=== PATIENT | male | born 1995 | race Caucasian/White ===

== ENCOUNTER 2016-10-27 19:57 | Emergency (ER) | payer MEDICAID ==
[2016-10-27 20:03] VITALS: RESP 16; TEMP 98.2
--- NOTE | 2016-10-27 21:10 | EDPHY ---
H & P Time Seen by Provider: 10/27/16 20:25 HPI/ROS: CHIEF COMPLAINT: Back pain HISTORY OF PRESENT ILLNESS: 20-year-old male presents to the emergency department by private vehicle complaining of chronic back pain. The patient states that he fell off of a ladder 2 years ago and has had chronic pain in his back since that time. He has had worsening pain or especially over the last few weeks. Has radicular symptoms down his left leg as well as numbness and tingling. He is from [facility] and saw his primary care provider recently and had an outpatient MRI which revealed herniated disc at L5-S1. He was referred to an orthopedic surgeon who apparently did not take his insurance. He was told by his primary care provider to come here for evaluation and referral to Neurosurgery. Patient has no bowel or bladder incontinence. He feels that his lower legs are weak. That is not new. He has no chest pain or difficulty breathing. No new reported trauma. He ran out of his oxycodone just a few days ago. He has also taken Valium for muscular spasm. REVIEW OF SYSTEMS: Constitutional: No fever, no chills. Eyes: No double or blurry vision. ENT: No sore throat. Respiratory: No cough, no shortness of breath. Cardiac: No chest pain. Gastrointestinal: No abdominal pain, vomiting or diarrhea. Genitourinary: No dysuria. Musculoskeletal: Back pain as above. No neck pain. Skin: No rashes. Neurological: No headache. Past Medical/Surgical History: Chronic back pain, narcotic dependence Social History: Single and lives in [place] Smoking Status: Never smoked Physical Exam: General Appearance: Alert, no distress. Eyes: Pupils equal and round. Extraocular motions are all intact. ENT: Mouth: Mucous membranes moist. Respiratory: No wheezing, rhonchi, or rales, lungs are clear to auscultation. Cardiovascular: Regular rate and rhythm. Gastrointestinal: Abdomen is soft and nontender, no masses, no rebound or guarding, bowel sounds normal. No CVA tenderness bilaterally. Neurological: Alert and oriented x 3, cranial nerves II through XII grossly intact Skin: Warm and dry, no rashes. Musculoskeletal: Nontender to palpate along the cervical, thoracic or lumbar spine. Neck is supple. Extremities: Full range of motion and no peripheral edema. Straight leg raise is negative bilaterally. He has pain with walking on his toes however he is able to do so fully. He is able to do heel walking. He is unable to bend down to touch his toes because of pain. Laterally bending to the left causes discomfort. Psychiatric: Patient is oriented X 3, there is no agitation. Constitutional: Initial Vital Signs Temperature (C) 36.8 C 10/27/16 20:01 Heart Rate 109 H 10/27/16 20:01 Respiratory Rate 16 10/27/16 20:01 Blood Pressure 137/96 H 10/27/16 20:01 O2 Sat (%) 95 10/27/16 20:01 O2 Delivery Mode Room Air Allergies/Adverse Reactions: No Known Allergies Allergy (Unverified 10/27/16 20:03) Home Medications: Medication Instructions Recorded Cyclobenzaprine [Flexeril] 10 mg PO TIDPRN PRN #12 tab 10/27/16 Medical Decision Making ED Course/Re-evaluation: 20-year-old male presents to the emergency department with chronic back pain. The patient ran out of his oxycodone just a few days ago. Patient had MRI on October 18, 2016 which showed a central disc extrusion at L5-S1 resulting in contact with bilateral S1 nerve root and slight displacement of the descending left S1 nerve root. The patient lives in [place], [place] in [facility] and has been seen at the [facility] in [place]. His most recent visit, October 23, 2016, they explained that they would not prescribe further narcotics for him. He was referred to an orthopedic surgeon, Dr. Rincon, with [facility], the patient states that they do not take his insurance. I explained to the patient that I did not feel comfortable prescribing narcotic pain medication for him. Patient has ongoing chronic pain for last 2 years. Has been prescribed oxycodone typically about every 2 weeks or less by providers updated some [facility]. He most recently filled a prescription on October 18, 2016 for oxycodone and diazepam. The patient understands that we will not prescribe narcotics for him in the emergency department. He understands that he will establish care with primary care provider. I did speak with Dr. Romo who is on-call for Neurosurgery who will see him in follow-up. I do not think additional imaging studies are indicated. The patient had a recent MRI. He is otherwise neurovascularly intact. Differential Diagnosis: Back pain including but not limited to muscular pain, herniated disc, spine fracture, intra-abdominal causes and urinary tract infection. - Data Points Medications Given: Discontinued Medications Cyclobenzaprine HCl (Flexeril) 30 mg PO EDNOW ONE Stop: 10/27/16 21:27 Last Admin: 10/27/16 21:27 Dose: 30 mg Departure - Departure Disposition: Home, Routine, Self-Care Clinical Impression: Back pain Qualifiers: Back pain location: low back pain Chronicity: chronic Back pain laterality: left Sciatica presence: with sciatica Sciatica laterality: sciatica of left side Qualified Code(s): M54.42 - Lumbago with sciatica, left side Condition: Good Instructions: Cyclobenzaprine (By mouth), Low Back Strain (ED), Chronic Back Pain (ED) Additional Instructions: You should follow up with neurosurgeon on-call regarding her ongoing chronic back pain. May take ibuprofen 600 mg every 8 hours as needed for pain. Referrals: Rigoberto Romo MD [Medical Doctor] - 5-7 days, call for appt. (Neurosurgeon on- call) Prescriptions: Cyclobenzaprine [Flexeril] 10 mg PO TIDPRN PRN #12 tab PRN Reason: Spasms
[2016-10-27] MEDS ORDERED: CYCLOBENZAPRINE 10MG PREPACK#3 BTL TAKEHOME ONE (21:17)
[2016-10-27] MEDS ORDERED: CYCLOBENZAPRINE 10 MG TAB ONE (21:23)
[2016-10-27] MEDS ORDERED: CYCLOBENZAPRINE 10 MG TAB PO ONE (21:26)
[2016-10-27 21:35] VITALS: BP 137/89; PULSE 73; O2SAT 94
== END 2016-10-27 21:34 | disposition home or self-care (01) ==
DX: M54.42 Lumbago with sciatica, left side (principal)

== ENCOUNTER 2016-12-06 12:57 | Day surgery (SDC) | payer MEDICAID ==
[2016-12-06] MEDS ORDERED: fentaNYL 100 MCG/2 ML INJ ONE (14:01)
[2016-12-06] MEDS ORDERED: MIDAZOLAM 2 MG/2 ML VIAL ONE (14:01)
[2016-12-06] MEDS ORDERED: LIDOCAINE 1% 300 MG/30 ML SDV ONE (15:02)
[2016-12-06] MEDS ORDERED: TRIAMCINOLONE ACETONIDE 200 MG/5 ML MDV IM ONE (15:03)
[2016-12-06] MEDS ORDERED: fentaNYL 100 MCG/2 ML INJ IVP PRN (15:23)
[2016-12-06] MEDS ORDERED: HYDROCODONE/APAP 5/325 TAB PO PRN (15:24)
== END 2016-12-06 16:07 | disposition home or self-care (01) ==
LOC: FIMAGING 12:57
PROVIDERS: ATTEND Physician Assistant Surgical
PROC: 3E0S33Z Introduction of Anti-inflammatory into Epidural Space, Percutaneous Approach (ICD-10-PCS; principal; 2016-12-06 15:05)
PROC: 3E0S3BZ Introduction of Anesthetic Agent into Epidural Space, Percutaneous Approach (ICD-10-PCS; principal; 2016-12-06 15:05)
DX: M51.37 Other intervertebral disc degeneration, lumbosacral region (principal); M54.5 Low back pain; M54.32 Sciatica, left side
CPT/HCPCS: J2250; J3010; J3301

== ENCOUNTER → 2017-01-02 | Day surgery (SDC) | payer MEDICAID ==
[~2017-01-02] MED LIST: BUPIVACAINE 0.5% 10 ML SDV ONE; DEPO METHYLPREDNISOLONE 40 MG/ML SDV ONE; DEPO METHYLPREDNISOLONE 80 MG/ML SDV ONE
== END | disposition home or self-care (01) ==
LOC: FIMAGING 07:59
PROVIDERS: ATTEND Neurological Surgery
PROC: 3E0U3BZ Introduction of Anesthetic Agent into Joints, Percutaneous Approach (ICD-10-PCS; principal; 2017-01-02)
PROC: 3E0U33Z Introduction of Anti-inflammatory into Joints, Percutaneous Approach (ICD-10-PCS; principal; 2017-01-02)
DX: M54.9 Dorsalgia, unspecified (principal)
CPT/HCPCS: J1030; J1040